=== PATIENT | male | born 1990 | race Two or more races ===

== ENCOUNTER 2020-08-02 11:41 | Emergency (ER) | payer OTHER ==
[~2020-08-02] VITALS: Ht 172.7 cm; Wt 117.9 kg
[2020-08-02 12:00] VITALS: BP 129/82
[2020-08-02] MEDS ORDERED: Methocarbamol 750mg tab ORAL ONE (12:30)
[2020-08-02] MEDS ORDERED: IBUPROFEN600 M1 ORAL (12:36)
[2020-08-02] MEDS ORDERED: LIDODERM700 M1 TOPIC (12:36)
[2020-08-02] MEDS ORDERED: ROBAXIN-750750 MG PO (12:36)
[2020-08-02 12:45] VITALS: BP 129/82
--- NOTE | 2020-08-03 08:14 | Emergency Room Report ---
History of Present Illness General Chief Complaint: Back Pain-No Injury Source: Patient Present Illness HPI 29-year-old male presents with back pain. Happened today while at work. Bent over to lift something and felt a pulling in his back. Pain is dull, left- sided, 8 out of 10, nonradiating. Denies bowel or bladder incontinence. Denies any leg or motor weakness. No other aggravating relieving factors. Denies any other associated symptoms Allergies: Coded Allergies: No Known Allergies (Unverified , 08/02/20) COVID-19 Screening Contact w/high risk pt: No Experienced COVID-19 symptoms?: No COVID-19 Testing performed PROPOSAL DEVELOPMENT MANAGER: No Patient History Past Medical History: none Past Surgical History: none Pertinent Family History: none Social History: Denies: smoking, alcohol use, drug use Immunizations: UTD Reviewed Nursing Documentation: PMH: Agreed; PSxH: Agreed Nursing Documentation-PMH Past Medical History: No Stated History Review of Systems All Other Systems: negative except mentioned in HPI Physical Exam Vital Signs Date Time Temp Pulse Resp B/P (MAP) Pulse Ox O2 Delivery O2 Flow Rate FiO2 08/02/20 11:52 98.1 82 20 129/82 (98) 95 Room Air Sp02 EP Interpretation: reviewed, normal General Appearance: no apparent distress, alert, GCS 15, non-toxic Head: normocephalic, atraumatic Eyes: bilateral eye normal inspection, bilateral eye PERRL ENT: hearing grossly normal, normal pharynx, no angioedema, normal voice Neck: full range of motion, supple/symm/no masses Respiratory: chest non-tender, lungs clear, normal breath sounds, speaking full sentences Cardiovascular #1: regular rate, rhythm, no edema Cardiovascular #2: 2+ carotid (R), 2+ carotid (L), 2+ radial (R), 2+ radial (L), 2+ dorsalis pedis (R), 2+ dorsalis pedis (L) Gastrointestinal: normal bowel sounds, non tender, soft, non-distended, no guarding, no rebound Rectal: deferred Genitourinary: normal inspection, no CVA tenderness Musculoskeletal: back normal, normal range of motion, gait/station normal, tender - Paraspinal lumbar tenderness Neurologic: alert, motor strength/tone normal, oriented x3, sensory intact, responsive, speech normal Psychiatric: judgement/insight normal, memory normal, mood/affect normal, no suicidal/homicidal ideation Reflexes: 3+ bicep (R), 3+ bicep (L), 3+ tricep (R), 3+ tricep (L), 3+ knee (R), 3+ knee (L) Lymphatic: no adenopathy Medical Decision Making Diagnostic Impression: Primary Impression: Back pain Qualified Codes: M54.5 - Low back pain ER Course Hospital Course 29-year-old male presents ED complaining of lower back pain. Differential diagnoses include: pyelonephritis, kidney stone, muscle strain, Lspine fracture Clinical course Patient placed on stretcher. After initial history exam reveals male in no acute distress there is no midline tenderness there is pain in the left paraspinal. Straight leg raise negative. No sensory deficits. 5 out of 5 strength in lower extremities. Discussed findings with patient. Pain is muscular. Imaging not indicated. Given meds in ED with pain improved. Safe for discharge and close outpatient follow-up. I will provide referrals. Diagnosis - back pain Stable and discharged to home with prescription for Motrin, Robaxin, Lidoderm. Followup with PMD. Return to ED if symptoms recur or worsen Last Vital Signs Date Time Temp Pulse Resp B/P (MAP) Pulse Ox O2 Delivery O2 Flow Rate FiO2 08/02/20 12:45 98.1 86 20 129/82 95 Room Air Status: improved Disposition: HOME, SELF-CARE Condition: Stable Scripts Methocarbamol* (ROBAXIN-750*) 750 Mg Tablet 750 MG PO TID, #21 TAB 0 Refills Prov: Navdeep Peres MD 08/02/20 Lidocaine Patch* (Lidoderm Patch*) 1 Each Adh..patch 1 PATCH TOPIC DAILY, #7 PATCH 0 Refills Patch(es) may remain in place for up to 12 hours in any 24-hour period. Prov: Navdeep Peres MD 08/02/20 Ibuprofen* (MOTRIN*) 600 Mg Tablet 600 MG ORAL Q8H PRN for FOR PAIN, #30 TAB 0 Refills Prov: Navdeep Peres MD 08/02/20 Referrals: NOT CHOSEN IPA/,REFERRING (PCP) Iraj Lowery [facility]. [facility] Departure Forms: Return to Work Return to Work Date: Aug 04, 2020 Work Restrictions: No Heavy Lifting Patient Instructions: Back Pain, Adult Navdeep Peres MD Aug 03, 2020 08:14
== END 2020-08-02 12:45 | disposition home or self-care (01) ==
LOC: EMR 12:15
DX: M54.5 Low back pain (principal); X50.9XXA Other and unspecified overexertion or strenuous movements or postures, initial encounter; Y93.89 Activity, other specified; Y92.9 Unspecified place or not applicable
CPT/HCPCS: 99282